=== PATIENT | male | born 1960 | race Caucasian/White ===

== ENCOUNTER 2024-04-30 15:31 | Emergency (ER) | payer SELFPAY ==
[2024-04-30 16:40] LABS: Basophils Percent Auto 0.4 % (0.2-1.2); Eosinophils Absolute Auto 0.1 K/mm3 (0-0.3); Eosinophils Percent Auto 0.5 % (0-4.4); Hematocrit 39.4 % (42.0-52.0); Hemoglobin 13.3 g/dL (14.0-18.0); Immature Granulocyte Absolute 0.02 K/mm3 (0.00-0.031); Immature Granulocyte Percent A 0.2 % (0-0.5); Lymphocytes Percent Auto 20.8 % (18.3-44.2); Mean Corpuscular HGB Conc 33.8 g/dl (32-36); Mean Corpuscular Hemoglobin 31.9 pg (26-34); Mean Corpuscular Volume 94.5 fl (80-100); Mean Platelet Volume 10.5 fl (7.4-10.4); Monocytes Absolute Auto 0.9 K/mm3 (0.1-0.6); Neutrophils Absolute Auto 6.2 K/mm3 (1.3-6.7); Neutrophils Percent Auto 68.1 % (45.5-73.1); Platelet Count Result 332 k/mm3 (150-375); Red Blood Count 4.17 M/mm3 (4.6-6.20); Red Cell Distribution Width 12.6 % (11.5-14.5); White Blood Count 9.1 K/mm3 (4.5-10.0)
[2024-04-30 16:42] VITALS: BP 140/96; PULSE 100; RESP 20; TEMP 36.4; O2SAT 98
[2024-04-30] MEDS: HALOPERIDOL LACTATE 5 MG/ML VIAL IM (16:49)
[2024-04-30] MEDS: LORazepam INJ (*CRX) 2 MG/ML VIAL IM (16:49)
[2024-04-30 16:53] LABS: Alanine Aminotransferase 85 U/L (6-50); Albumin Level 4.8 g/dL (3.5-5.1); Alkaline Phosphatase 101 U/L (38-126); Anion Gap 12 mmol/L (4-12); Aspartate Amino Transferase 97 U/L (17-59); Bilirubin,Total 0.9 mg/dL (0.2-1.3); Blood Urea Nitrogen 27 mg/dL (9-20); Calcium 9.8 mg/dL (8.4-10.2); Carbon Dioxide 26 mmol/L (22-30); Chloride 102 mmol/L (98-107); Estimated CRCL calculation 70 ml/min; Estimated Glomerular Filt Rate > 60; Glucose 123 mg/dL (65-110); Potassium 4.3 mmol/L (3.4-5.0); Sodium 140 mmol/L (137-145)
[2024-04-30 16:59] VITALS: O2SAT 98
[2024-04-30 17:00] LABS: Amphetamine Screen Urine Negative (Negative); Barbiturate Screen Urine Negative (Negative); Benzodiazepines Screen Urine Negative (Negative); Cannabinoid Screen Urine Positive (Negative); Cocaine Screen Urine Negative (Negative); Methadone Screen Urine Negative (Negative); Opiate Screen Urine Negative (Negative); Phencyclidine Screen Urine Negative (Negative)
[2024-04-30 17:12] LABS: Acetaminophen < 10 ug/mL (10-30); Ethanol < 10 mg/dL (<10); Salicylate < 1.0 mg/dL (2-20)
[2024-04-30 17:17] LABS: Add Urine Microscopic? YES; Appearance Urine Clear (Clear); Bacteria Urine None Seen /hpf; Bilirubin Urine 1+ (Negative); Blood Urine Negative (Negative); Calcium Oxalate Crystals Urine Present /hpf; Color Urine Dark Yellow (Yellow); Glucose Urine UA Negative (Negative); Hyaline Casts Urine Present /lpf; Ketones Urine Trace mg/dL (Negative); Leukocyte Esterase Ur Negative LEU/UL (Negative); Mucus Urine Present /lpf; Need Manual Microscopic Reviewed; Nitrate Urine Negative (Negative); Protein Urine 1+ mg/dL (Negative); RBC Urine 0-2 /hpf (0-2); Specific Grav Ur 1.035 (1.001-1.035); Squamous Epithelial Cell Urine None Seen /hpf (Few); WBC Urine 0-5 /hpf (0-3); pH Urine 5.5 (5.0-9.0)
--- NOTE | 2024-04-30 18:03 | ED_ITS ---
HPI - Psych General Chief Complaint: Psychiatric Symptoms <Yomaira Cash APRN - Last Filed: 04/30/24 19:52> Stated Complaint: psych eval <Yomaira Cash APRN - Last Filed: 04/30/24 19:52> Time Seen by Provider: 04/30/24 15:50 <Yomaira Cash APRN - Last Filed: 04/30/24 19:52> Source: patient and EMS <Andreea Khan PA-C - Last Filed: 05/02/24 10:31> Mode of arrival: EMS <Andreea Khan PA-C - Last Filed: 05/02/24 10:31> History of Present Illness HPI Narrative: Patient is a 63-year-old male who presents to the ER in a manic state. He was brought to the ER by the police. Upon initial examination patient has no medical complaints or reports of pain. He is belligerent with staff, but is not making threats. Patient is not redirectable during initial examination. He reports he has not slept in 17 days. Patient endorses a history of back pain, but is unable to provide any other medical history. Per EMS, patient has not been taking his psychiatric medication. <Yomaira Cash APRN - Last Filed: 04/30/24 19:52> Patient is a 63-year-old male who presents to the ER in a manic state. He was brought to the ER by the police. Upon initial examination patient has no medical complaints or reports of pain. He is belligerent with staff, but is not making threats. Patient is not redirectable during initial examination. He reports he has not slept in 17 days. Patient endorses a history of back pain, but is unable to provide any other medical history. Per EMS, patient has not been taking his psychiatric medication. <Andreea Khan PA-C - Last Filed: 05/02/24 10:31> Related Data Allergies/Adverse Reactions: Allergies Allergy/AdvReac Type Severity Reaction Status Date / Time No Known Allergies Allergy Verified 04/30/24 16:42 <Yomaira Cash APRN - Last Filed: 04/30/24 19:52> Review of Systems Review of Systems: All systems reviewed & are unremarkable except as noted in HPI and below <Yomairanimco Cash APRN - Last Filed: 04/30/24 19:52> [facility] Social History Social History: Social History (Updated 05/01/24 @ 01:53 by Andreea Khan PA-C) Substance use: current Substance use type: marijuana <Yomairanimco Cash APRN - Last Filed: 04/30/24 19:52> Exam Narrative: GENERAL: Well-nourished, non-toxic, in mild distress d/t manic state and agitation HEAD: Normocephalic, atraumatic. NECK: Supple. No adenopathy, no masses. RESPIRATORY: Airway patent, respirations nonlabored. Clear to auscultation bilaterally, no rales, rhonchi, wheezing. CARDIOVASCULAR: Tachycardia without murmurs, rubs, or gallops. Peripheral pulses 2+ and equal bilaterally. ABDOMINAL: Soft, nontender, nondistended, no hepatosplenomegaly. Normoactive BS. MUSCULOSKELETAL: Moves all extremities. Strength/ROM intact without gross deformities. SKIN: Warm, dry, normal color. No rashes. NEURO: A&O X3. Speech clear, but loud with verbalization. PSYCHIATRIC: Agitated, pacing, using arms when speaking and pointing fingers at people <Yomaira Cash APRN - Last Filed: 04/30/24 19:52> Course Course Emergency Course: Crisis came out to evaluate patient. He reports he does not need their help currently. Although is once again escalating and continues to be verbally aggressive with staff. Haldol and Ativan given <Andreea Khan PA-C - Last Filed: 05/02/24 10:31> Reevaluation(s) Reevaluation #1: Patient was evaluated crisis and was cleared. Patient denies any homicidal suicidal ideation. Patient declined any additional outpatient resources. Patient was alert appropriate at his baseline and patient was discharged to home. <Nelson Gonzalez MD - Last Filed: 05/01/24 15:52> Vital Signs Vital signs: Vital Signs Temperature 97.6 F 04/30/24 16:42 Pulse Rate 100 04/30/24 16:42 Respiratory Rate 20 04/30/24 16:42 Blood Pressure 140/96 H 04/30/24 16:42 Pulse Oximetry 98 04/30/24 16:42 Oxygen Delivery Room Air 04/30/24 16:42 Temperature 98.1 F 05/01/24 10:04 Pulse Rate 90 05/01/24 10:04 Respiratory Rate 17 05/01/24 10:04 Blood Pressure 134/81 05/01/24 10:04 Pulse Oximetry 99 05/01/24 10:04 Oxygen Delivery Room Air 04/30/24 16:42 <Yomaira Cash APRN - Last Filed: 04/30/24 19:52> Vital Signs Temperature 97.6 F 04/30/24 16:42 Pulse Rate 100 04/30/24 16:42 Respiratory Rate 20 04/30/24 16:42 Blood Pressure 140/96 H 04/30/24 16:42 Pulse Oximetry 98 04/30/24 16:42 Oxygen Delivery Room Air 04/30/24 16:42 Temperature 98.1 F 05/01/24 10:04 Pulse Rate 90 05/01/24 10:04 Respiratory Rate 17 05/01/24 10:04 Blood Pressure 134/81 05/01/24 10:04 Pulse Oximetry 99 05/01/24 10:04 Oxygen Delivery Room Air 04/30/24 16:42 <Andreea Khan PA-C - Last Filed: 05/02/24 10:31> Vital Signs Temperature 97.6 F 04/30/24 16:42 Pulse Rate 100 04/30/24 16:42 Respiratory Rate 20 04/30/24 16:42 Blood Pressure 140/96 H 04/30/24 16:42 Pulse Oximetry 98 04/30/24 16:42 Oxygen Delivery Room Air 04/30/24 16:42 Temperature 98.1 F 05/01/24 10:04 Pulse Rate 90 05/01/24 10:04 Respiratory Rate 17 05/01/24 10:04 Blood Pressure 134/81 05/01/24 10:04 Pulse Oximetry 99 05/01/24 10:04 Oxygen Delivery Room Air 04/30/24 16:42 <Nelson Gonzalez MD - Last Filed: 05/01/24 15:52> MDM - Psych MDM Narrative Medical decision making narrative: Patient is a 63-year-old male who presents to the ER in a manic state. He was brought to the ER by the police. Upon initial examination patient has no medical complaints or reports of pain. He is belligerent with staff, but is not making threats. Patient is not redirectable during initial examination. He reports he has not slept in 17 days. Patient endorses a history of back pain, but is unable to provide any other medical history. Per EMS, patient has not been taking his psychiatric medication. He denies the need for any medical treatment, but reports he wanted to come to the ER to be evaluated. Patient was medicated with Haldol 5 mg IM and Ativan 2 mg IM. He was offered an additional 1 mg Ativan p.o. but patient settled in and fell asleep prior to the need for additional Ativan. Will do a more thorough physical and mental health examination once patient's mental status is back to baseline. Pt care signed out to RANDAL Doran. <Yomaira Cash APRN - Last Filed: 04/30/24 19:52> Patient is a 63-year-old male who presents to the ER in a manic state. He was brought to the ER by the police. Upon initial examination patient has no medical complaints or reports of pain. He is belligerent with staff, but is not making threats. Patient is not redirectable during initial examination. He reports he has not slept in 17 days. Patient endorses a history of back pain, but is unable to provide any other medical history. Per EMS, patient has not been taking his psychiatric medication. He denies the need for any medical treatment, but reports he wanted to come to the ER to be evaluated. Patient was medicated with Haldol 5 mg IM and Ativan 2 mg IM. He was offered an additional 1 mg Ativan p.o. but patient settled in and fell asleep prior to the need for additional Ativan. Will do a more thorough mental health examination once patient's mental status is back to baseline. Pt care signed out to RANDAL Doran. Patient was not cooperative for crisis evaluation and then became aggressive with staff again requiring additional dose of Ativan and Haldol. I believe patient needs psychiatric admission. Will consult crisis again once he awakens <Andreea Khan PA-C - Last Filed: 05/02/24 10:31> Differential Diagnosis Differential diagnosis: Likely acute psychosis, suicidal ideation, bipolar disorder, drug-induced psychotic disorder and acute anxiety <Yomaiar Cash APRN - Last Filed: 04/30/24 19:52> Lab Data Attestation: I reviewed the patient's lab results. <Yomaira Cash APRN - Last Filed: 04/30/24 19:52> Result diagrams: 04/30/24 16:27 04/30/24 16:27 <Yomaira Cash CAR WASH ATTENDANT - Last Filed: 04/30/24 19:52> Labs: Lab Results 04/30/24 04/30/24 Range/Units 16:26 16:27 WBC 9.1 (4.5-10.0) K/mm3 RBC 4.17 L (4.6-6.20) M/mm3 Hgb 13.3 L (14.0-18.0) g/dL Hct 39.4 L (42.0-52.0) % MCV 94.5 (80-100) fl MCH 31.9 (26-34) pg MCHC 33.8 (32-36) g/dl RDW 12.6 (11.5-14.5) % Plt Count 332 (150-375) k/mm3 MPV 10.5 H (7.4-10.4) fl Immature Gran % (Auto) 0.2 (0-0.5) % Neut % (Auto) 68.1 (45.5-73.1) % Lymph % (Auto) 20.8 (18.3-44.2) % Martin % (Auto) 10.0 H (2.6-8.5) % Eos % (Auto) 0.5 (0-4.4) % Baso % (Auto) 0.4 (0.2-1.2) % Lymph # (Auto) 1.90 (0.9-3.2) K/mm3 Martin # (Auto) 0.9 H (0.1-0.6) K/mm3 Eos # (Auto) 0.1 (0-0.3) K/mm3 Baso # (Auto) 0.0 (0.0-0.1) K/mm3 Abs Immat Gran (auto) 0.02 (0.00-0.031) K/mm3 Absolute Neuts (auto) 6.2 (1.3-6.7) K/mm3 Absolute Nucleated RBC 0.000 (0.0-0.012) K/mm3 Nucleated RBC % 0.0 (0.0-0.2) % Sodium 140 (137-145) mmol/L Potassium 4.3 (3.4-5.0) mmol/L Chloride 102 (98-107) mmol/L Carbon Dioxide 26 (22-30) mmol/L Anion Gap 12 (4-12) mmol/L BUN 27 H (9-20) mg/dL Creatinine 1.00 (0.7-1.3) mg/dL Estim Creat Clear Calc 70 ml/min Estimated GFR > 60 (59 - ) Glucose 123 H (65-110) mg/dL Calcium 9.8 (8.4-10.2) mg/dL Total Bilirubin 0.9 (0.2-1.3) mg/dL AST 97 H (17-59) U/L ALT 85 H (6-50) U/L Alkaline Phosphatase 101 (38-126) U/L Total Protein 8.0 (6.3-8.2) g/dL Albumin 4.8 (3.5-5.1) g/dL Urine Color Dark yellow (Yellow) Urine Appearance Clear (Clear) Urine pH 5.5 (5.0-9.0) Ur Specific [place] 1.035 (1.001-1.035) Urine Protein 1+ H (Negative) mg/dL Urine Glucose (UA) Negative (Negative) mg/dL Urine Ketones Trace H (Negative) mg/dL Ur Blood (Man) Negative (Negative) Urine Nitrate Negative (Negative) Urine Bilirubin 1+ H (Negative) Urine Urobilinogen 1.0 (<2.0) mg/dL Add Ur Microanalysis Reviewed Leukocyte Esterase Rfl Negative (Negative) HARMEET/UL Urine RBC 0-2 (0-2) /hpf Urine WBC 0-5 (0-3) /hpf Ur Squamous Epith Cells None seen (Few) /hpf Calcium Oxalate Crystal Present (None) /hpf Urine Bacteria None seen /hpf Urine Casts 11-20 Hyaline Casts Present (None) /lpf Urine Mucus Present /lpf Salicylates < 1.0 L (2-20) mg/dL Urine Opiates Screen Negative (Negative) Urine Methadone Screen Negative (Negative) Acetaminophen < 10 L (10-30) ug/mL Ur Barbiturates Screen Negative (Negative) Ur Phencyclidine Scrn Negative (Negative) Ur Amphetamine Screen Negative (Negative) U Benzodiazepines Scrn Negative (Negative) Urine Cocaine Screen Negative (Negative) U Cannabinoids Screen Positive A (Negative) Ethyl Alcohol < 10 (<10) mg/dL <Yomaira Cash, CAR WASH ATTENDANT - Last Filed: 04/30/24 19:52> Lab Results 04/30/24 04/30/24 Range/Units 16:26 16:27 WBC 9.1 (4.5-10.0) K/mm3 RBC 4.17 L (4.6-6.20) M/mm3 Hgb 13.3 L (14.0-18.0) g/dL Hct 39.4 L (42.0-52.0) % MCV 94.5 (80-100) fl MCH 31.9 (26-34) pg MCHC 33.8 (32-36) g/dl RDW 12.6 (11.5-14.5) % Plt Count 332 (150-375) k/mm3 MPV 10.5 H (7.4-10.4) fl Immature Gran % (Auto) 0.2 (0-0.5) % Neut % (Auto) 68.1 (45.5-73.1) % Lymph % (Auto) 20.8 (18.3-44.2) % Martin % (Auto) 10.0 H (2.6-8.5) % Eos % (Auto) 0.5 (0-4.4) % Baso % (Auto) 0.4 (0.2-1.2) % Lymph # (Auto) 1.90 (0.9-3.2) K/mm3 Martin # (Auto) 0.9 H (0.1-0.6) K/mm3 Eos # (Auto) 0.1 (0-0.3) K/mm3 Baso # (Auto) 0.0 (0.0-0.1) K/mm3 Abs Immat Gran (auto) 0.02 (0.00-0.031) K/mm3 Absolute Neuts (auto) 6.2 (1.3-6.7) K/mm3 Absolute Nucleated RBC 0.000 (0.0-0.012) K/mm3 Nucleated RBC % 0.0 (0.0-0.2) % Sodium 140 (137-145) mmol/L Potassium 4.3 (3.4-5.0) mmol/L Chloride 102 (98-107) mmol/L Carbon Dioxide 26 (22-30) mmol/L Anion Gap 12 (4-12) mmol/L BUN 27 H (9-20) mg/dL Creatinine 1.00 (0.7-1.3) mg/dL Estim Creat Clear Calc 70 ml/min Estimated GFR > 60 (59 - ) Glucose 123 H (65-110) mg/dL Calcium 9.8 (8.4-10.2) mg/dL Total Bilirubin 0.9 (0.2-1.3) mg/dL AST 97 H (17-59) U/L ALT 85 H (6-50) U/L Alkaline Phosphatase 101 (38-126) U/L Total Protein 8.0 (6.3-8.2) g/dL Albumin 4.8 (3.5-5.1) g/dL Urine Color Dark yellow (Yellow) Urine Appearance Clear (Clear) Urine pH 5.5 (5.0-9.0) Ur Specific [place] 1.035 (1.001-1.035) Urine Protein 1+ H (Negative) mg/dL Urine Glucose (UA) Negative (Negative) mg/dL Urine Ketones Trace H (Negative) mg/dL Ur Blood (Man) Negative (Negative) Urine Nitrate Negative (Negative) Urine Bilirubin 1+ H (Negative) Urine Urobilinogen 1.0 (<2.0) mg/dL Add Ur Microanalysis Reviewed Leukocyte Esterase Rfl Negative (Negative) HARMEET/UL Urine RBC 0-2 (0-2) /hpf Urine WBC 0-5 (0-3) /hpf Ur Squamous Epith Cells None seen (Few) /hpf Calcium Oxalate Crystal Present (None) /hpf Urine Bacteria None seen /hpf Urine Casts 11-20 Hyaline Casts Present (None) /lpf Urine Mucus Present /lpf Salicylates < 1.0 L (2-20) mg/dL Urine Opiates Screen Negative (Negative) Urine Methadone Screen Negative (Negative) Acetaminophen < 10 L (10-30) ug/mL Ur Barbiturates Screen Negative (Negative) Ur Phencyclidine Scrn Negative (Negative) Ur Amphetamine Screen Negative (Negative) U Benzodiazepines Scrn Negative (Negative) Urine Cocaine Screen Negative (Negative) U Cannabinoids Screen Positive A (Negative) Ethyl Alcohol < 10 (<10) mg/dL <Andreea Khan PA-C - Last Filed: 05/02/24 10:31> Lab Results 04/30/24 04/30/24 Range/Units 16:26 16:27 WBC 9.1 (4.5-10.0) K/mm3 RBC 4.17 L (4.6-6.20) M/mm3 Hgb 13.3 L (14.0-18.0) g/dL Hct 39.4 L (42.0-52.0) % MCV 94.5 (80-100) fl MCH 31.9 (26-34) pg MCHC 33.8 (32-36) g/dl RDW 12.6 (11.5-14.5) % Plt Count 332 (150-375) k/mm3 MPV 10.5 H (7.4-10.4) fl Immature Gran % (Auto) 0.2 (0-0.5) % Neut % (Auto) 68.1 (45.5-73.1) % Lymph % (Auto) 20.8 (18.3-44.2) % Martin % (Auto) 10.0 H (2.6-8.5) % Eos % (Auto) 0.5 (0-4.4) % Baso % (Auto) 0.4 (0.2-1.2) % Lymph # (Auto) 1.90 (0.9-3.2) K/mm3 Martin # (Auto) 0.9 H (0.1-0.6) K/mm3 Eos # (Auto) 0.1 (0-0.3) K/mm3 Baso # (Auto) 0.0 (0.0-0.1) K/mm3 Abs Immat Gran (auto) 0.02 (0.00-0.031) K/mm3 Absolute Neuts (auto) 6.2 (1.3-6.7) K/mm3 Absolute Nucleated RBC 0.000 (0.0-0.012) K/mm3 Nucleated RBC % 0.0 (0.0-0.2) % Sodium 140 (137-145) mmol/L Potassium 4.3 (3.4-5.0) mmol/L Chloride 102 (98-107) mmol/L Carbon Dioxide 26 (22-30) mmol/L Anion Gap 12 (4-12) mmol/L BUN 27 H (9-20) mg/dL Creatinine 1.00 (0.7-1.3) mg/dL Estim Creat Clear Calc 70 ml/min Estimated GFR > 60 (59 - ) Glucose 123 H (65-110) mg/dL Calcium 9.8 (8.4-10.2) mg/dL Total Bilirubin 0.9 (0.2-1.3) mg/dL AST 97 H (17-59) U/L ALT 85 H (6-50) U/L Alkaline Phosphatase 101 (38-126) U/L Total Protein 8.0 (6.3-8.2) g/dL Albumin 4.8 (3.5-5.1) g/dL Urine Color Dark yellow (Yellow) Urine Appearance Clear (Clear) Urine pH 5.5 (5.0-9.0) Ur Specific [place] 1.035 (1.001-1.035) Urine Protein 1+ H (Negative) mg/dL Urine Glucose (UA) Negative (Negative) mg/dL Urine Ketones Trace H (Negative) mg/dL Ur Blood (Man) Negative (Negative) Urine Nitrate Negative (Negative) Urine Bilirubin 1+ H (Negative) Urine Urobilinogen 1.0 (<2.0) mg/dL Add Ur Microanalysis Reviewed Leukocyte Esterase Rfl Negative (Negative) HARMEET/UL Urine RBC 0-2 (0-2) /hpf Urine WBC 0-5 (0-3) /hpf Ur Squamous Epith Cells None seen (Few) /hpf Calcium Oxalate Crystal Present (None) /hpf Urine Bacteria None seen /hpf Urine Casts 11-20 Hyaline Casts Present (None) /lpf Urine Mucus Present /lpf Salicylates < 1.0 L (2-20) mg/dL Urine Opiates Screen Negative (Negative) Urine Methadone Screen Negative (Negative) Acetaminophen < 10 L (10-30) ug/mL Ur Barbiturates Screen Negative (Negative) Ur Phencyclidine Scrn Negative (Negative) Ur Amphetamine Screen Negative (Negative) U Benzodiazepines Scrn Negative (Negative) Urine Cocaine Screen Negative (Negative) U Cannabinoids Screen Positive A (Negative) Ethyl Alcohol < 10 (<10) mg/dL <Nelson Gonzalez MD - Last Filed: 05/01/24 15:52> Critical Care Time Critical Care Time Critical Care Time: No <Andreea Khan PA-C - Last Filed: 05/02/24 10:31> Restraint Face to Face Eval ED Reason for Restraint Aggressive/Violent <Andreea Khan PA-C - Last Filed: 05/02/24 10:31> Evaluation Findings Date Seen by EDP: 05/01/24 <Andreea Kahn PA-C - Last Filed: 05/02/24 10:31> Time Seen by EDP: 02:40 <Andreea Khan PA-C - Last Filed: 05/02/24 10:31> Pt's immediate situation:: Patient is escalating, threatening staff and police officers <Andreea Khan PA-C - Last Filed: 05/02/24 10:31> Pt's reaction to intervention:: Allowed RN to administer medications IM <Andreea Khan PA-C - Last Filed: 05/02/24 10:31> Pt's med/behavioral condition:: acute psychosis <Andreea Khan PA-C - Last Filed: 05/02/24 10:31> Restraint or Seclusion Need Need to continue or terminate:: Patient is now calm, resting <Andreea Khan PA-C - Last Filed: 05/02/24 10:31> Discharge Plan Discharge Clinical Impression: Encounter for psychiatric assessment, Acute psychosis <Yomaira Cash APRN - Last Filed: 04/30/24 19:52> Patient Disposition: Home, Self-Care <Yomaira Cash APRN - Last Filed: 04/30/24 19:52> Condition: Stable <Yomaira Cash APRN - Last Filed: 04/30/24 19:52> Instructions: Antibiotic Form <Yomaira Cash APRN - Last Filed: 04/30/24 19:52> Additional Instructions: Have close follow-up with your physicians as outpatient. If you have any worsening symptoms then please call or return to the emergency department. <Yomaira Cash, BHARATHI - Last Filed: 04/30/24 19:52> Follow-up/Referrals: Saumya,Dionicio Acosta MD [Primary Care Provider] - <Yomaira Cash APRN - Last Filed: 04/30/24 19:52>
--- NOTE | 2024-04-30 20:47 | PC.NURSE ---
Patient wakes up and starts screaming and acting violent when trying to get vital signs- no vital signs until now for this reason. Sending a male tech in now to attempt a new set of vital signs
--- NOTE | 2024-04-30 20:58 | PC.NURSE ---
Addendum entered by Nolvia Mosher RN 04/30/24 21:01: Pt stated to this RN that he wanted to wrap a cord around your neck and strangle you , pt told the RN who gave him meds If that medicine makes me knock out then I'm gonna knock you out . Patient made multiple statements about wanting to kill his family. Original Note: Pt stated to this RN that he wanted to wrap a cord around your neck and strangle you , pt told the RN who gave him meds If that medicine makes me knock out then I'm gonna knock you out . Patient made multiple statements about wanting to kill his family.
[2024-04-30 22:48] VITALS: BP 131/69; PULSE 86; RESP 19; TEMP 36.5; O2SAT 100
--- NOTE | 2024-04-30 23:15 | PC.NURSE ---
Pt calm and cooperative for this RN. Pt denies SI/HI at this time
[2024-05-01] VITALS (9 sets, daily range): BP systolic 97–134; BP diastolic 56–84; PULSE 81–97; RESP 16–19; TEMP 36.7–36.9; O2SAT 98–100
--- NOTE | 2024-05-01 01:48 | PC.NURSE ---
Crisis attempted to evaluate pt. Pt stated to them I live [place] [facility] [place] and don't need your help . Pt being verbally aggressive to crisis agent.
--- NOTE | 2024-05-01 02:35 | PC.NURSE ---
Pt attempting to leave, becoming aggressive with staff, verbally insulting. PD called
[2024-05-01] MEDS: LORazepam INJ (*CRX) 2 MG/ML VIAL IM (02:45)
[2024-05-01] MEDS: HALOPERIDOL LACTATE 5 MG/ML VIAL IM (02:45)
--- NOTE | 2024-05-01 02:45 | PC.NURSE ---
PD at bedside. Pt continues to threaten staff and attempt to leave. medication administered by this RN
--- NOTE | 2024-05-01 06:32 | PC.NURSE ---
Addendum entered by Celia Brooks RN 05/01/24 06:35: Charge nurse aware, she states he does not need to change at this time Original Note: Attempted to get pt changed into hospital psych pt scrubs. pt refused stating I've got my own pants I'm keeping those. I ain't changing . 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 One tote bag and one black backpack locked in cabinet
--- NOTE | 2024-05-01 08:34 | PC.NURSE ---
Spoke to Karen from [facility], who reported pt is clear from their prospective, does not meet criteria to be placed. pt also told them per Karen that pt refused resources from them. pt when speaking to Eugene, had denied any thoughts of self harm or thoughts of injnuring others
--- NOTE | 2024-05-01 10:26 | PC.NURSE ---
when patient ambulated, patient stated that he was still too sleepy from medications to leave. light out examiner notified.
== END 2024-05-01 11:30 | disposition home or self-care (01) ==
PROVIDERS: Family Medicine; Emergency Provider Physician Assistant; PCP Family Medicine
DX: F23 Brief psychotic disorder (principal)
CPT/HCPCS: 36415; 80053; 80143; 80179; 80307; 81001; 82077; 85025; 96372; 99284; J1630; J2060